=== PATIENT | male | born 1960 | race African-American/Black ===

== ENCOUNTER 2020-09-09 12:58 | Emergency (ER) | payer SELFPAY ==
--- NOTE | 2020-09-09 13:08 | NUR ---
Called patient, no answer. Checked tent and ER Lobby, no response
--- NOTE | 2020-09-09 13:16 | NUR ---
called for patient second time. No answer.
--- NOTE | 2020-09-09 13:23 | NUR ---
PATIENT LEFT WITHOUT BEING SEEN BY DR. PICKARD. NO FURTHER CARE PROVIDED FOR PATIENT.
== END 2020-09-09 13:23 | disposition left against medical advice (07) ==
LOC: MED 12:58
DX: Z53.21 Procedure and treatment not carried out due to patient leaving prior to being seen by health care provider (principal)